=== PATIENT | female | born 1990 | race Caucasian/White ===

== ENCOUNTER 2021-05-21 02:49 | Emergency (ER) | payer OTHER ==
[~2021-05-21] VITALS: Ht 162.6 cm; Wt 79.4 kg
[2021-05-21 02:54] VITALS: BP_SYST 128
--- NOTE | 2021-05-21 02:54 | NUR ---
Patient to ER bed 6 to gown for evaluation. Side rails up. Report given to Satya FINK.
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
--- NOTE | 2021-05-21 03:12 | NUR ---
PT UNAWARE OF TETANUS VACCINE STATUS AT THIS TIME, AWARE
[2021-05-21] MEDS ORDERED: IBUPROFEN 600 MG TABLET PO ONE (03:15)
[2021-05-21] MEDS ORDERED: DIPH-TET-PERTUS Vaccine 0.5 ML VIAL (ADACEL) I.M. ONE (03:15)
[2021-05-21] MEDS ORDERED: IBUPROFEN 600 MG TABLET ONE (03:37)
[2021-05-21 03:50] VITALS: BP_SYST 118
--- NOTE | 2021-05-21 06:20 | NUR ---
PT DISCHARGED WITH [facility]EC[facility] INSTRUCTIONS, CT RESULTS DISK, AND OFF WORK NOTE. PT ENCOURAGED TO FOLLOW UP WITH PRIMARY CARE DOCTOR FOR WORKER'S COMP PAPERWORK. PT VERBALIZED UNDERSTANDING. PT DISCHARGED IN STABLE CONDITION, WITH ALL BELONGINGS ACCOMPANIED BY BOYFRIEND.
== END 2021-05-21 06:39 | disposition home or self-care (01) ==
LOC: SED 02:49
DX: S01.111A Laceration without foreign body of right eyelid and periocular area, initial encounter (principal); W22.8XXA Striking against or struck by other objects, initial encounter; Y93.89 Activity, other specified; Y92.89 Other specified places as the place of occurrence of the external cause; Y99.0 Civilian activity done for income or pay
CPT/HCPCS: 70486-TC; 76376; 90715; 99284